=== PATIENT | female | born 1975 | race Caucasian/White ===

== ENCOUNTER → 2018-01-01 | Outpatient (CLI) | payer SELFPAY ==
[~2018-01-01] VITALS: Ht 167.6 cm; Wt 68.6 kg
[~2018-01-01] MED LIST: CAPRYLIC ACID PO; CEREFOLIN PO; D-2000 90 MG-201 TAB PO; FISH OIL500 MG; MARNATAL-F1 CAP PO; PRENATAL VITAMI1 TA5 PO; PROBIOTIC FORMU1 CAP PO; VITAMIN C500 MG PO; [UNRECOGNIZED DRUG - OTHER]; [UNRECOGNIZED DRUG - OTHER]; cortisol manager
[2018-01-01 15:59] VITALS: BP 138/82; PULSE 75; TEMP 98.1
[2018-01-01 17:00] VITALS: BP 138/82; PULSE 75; TEMP 98.1
[2018-01-01 17:16] LABS: BASO % 0.2 % (0.0-2.0); EOS # 0.1 (0.0-0.7); EOS % 0.6 % (0-4.0); GRAN # 7.1 (1.4-6.5); GRAN % 81.1 % (42.2-75.2); HEMATOCRIT 37.4 % (37.0-47.0); HEMOGLOBIN 12.7 g/dl (12.5-16.0); LYMPH # 1.1 (1.2-3.4); LYMPH % 12.7 % (20.0-51.0); MEAN CELL VOLUME 105 fl (80.0-100.0); MEAN CORPUSCULAR HEMOGLOBIN 36 pg (27.0-31.0); MEAN CORPUSCULAR HGB CONC 34 g/dl (33.0-37.0); MEAN PLATELET VOLUME 13.1 fl (7.4-10.4); MONO # 0.4 (0.1-0.6); MONO % 4.9 % (1.7-9.3); PLATELET COUNT 137 K/mm3 (130-400); RED BLOOD COUNT 3.57 M/mm3 (4.10-5.30); REDCELL DISTRIBUTION WIDTH-CV 13.4 % (11.5-14.5)
[2018-01-01 17:26] LABS: ALBUMIN 3.1 gm/dL (3.5-5.0); BILIRUBIN,TOTAL 0.2 mg/dL (0.0-1.0); CALCIUM 8.9 mg/dL (8.4-10.2); CREATININE, serum 0.69 mg/dL (0.52-1.25); POTASSIUM 3.9 mmol/L (3.4-5.0); TOTAL PROTEIN 6.4 gm/dL (6.4-8.2)
[2018-01-01 18:30] VITALS: BP 102/55; PULSE 69; TEMP 98.2
== END ==
LOC: LDRO 15:46
PROVIDERS: Student in an Organized Health Care Education/Training Program
DX: O99.89 Other specified diseases and conditions complicating pregnancy, childbirth and the puerperium (principal); M54.5 Low back pain; Z3A.28 28 weeks gestation of pregnancy
CPT/HCPCS: J7120

== ENCOUNTER → 2018-01-07 | Outpatient (CLI) | payer SELFPAY | LOC: SUN.DIA 12:21 | DX: O24.419 Gestational diabetes mellitus in pregnancy, unspecified control (principal); Z3A.00 Weeks of gestation of pregnancy not specified; Z71.3 Dietary counseling and surveillance | CPT/HCPCS: G0108 ==

== ENCOUNTER → 2018-01-21 | Outpatient (CLI) | payer SELFPAY | LOC: SUN.DIA 11:03 | DX: O24.419 Gestational diabetes mellitus in pregnancy, unspecified control (principal); Z3A.32 32 weeks gestation of pregnancy; Z71.3 Dietary counseling and surveillance | CPT/HCPCS: G0108 ==

== ENCOUNTER 2018-02-15 13:15 | Inpatient (IN) | payer SELFPAY ==
[2018-02-15] VITALS (22 sets, daily range): BP systolic 110–154; BP diastolic 58–88; PULSE 68–98; TEMP 97.7–98.7
[~2018-02-15] VITALS: Ht 167.6 cm; Wt 70.5 kg
[2018-02-15 14:23] LABS: BASO % 0.3 % (0.0-2.0); EOS # 0.1 (0.0-0.7); EOS % 0.9 % (0-4.0); GRAN # 5.5 (1.4-6.5); GRAN % 72.7 % (42.2-75.2); HEMATOCRIT 40.8 % (37.0-47.0); HEMOGLOBIN 14.1 g/dl (12.5-16.0); LYMPH # 1.4 (1.2-3.4); LYMPH % 19.2 % (20.0-51.0); MEAN CELL VOLUME 104 fl (80.0-100.0); MEAN CORPUSCULAR HEMOGLOBIN 36 pg (27.0-31.0); MEAN CORPUSCULAR HGB CONC 35 g/dl (33.0-37.0); MEAN PLATELET VOLUME 13.7 fl (7.4-10.4); MONO # 0.5 (0.1-0.6); MONO % 6.1 % (1.7-9.3); PLATELET COUNT 120 K/mm3 (130-400); RED BLOOD COUNT 3.93 M/mm3 (4.10-5.30); REDCELL DISTRIBUTION WIDTH-CV 13.6 % (11.5-14.5)
[2018-02-15] MEDS ORDERED: [UNRECOGNIZED DRUG - OTHER] PO (16:11)
[2018-02-16 03:15] VITALS: BP 131/76; PULSE 62; TEMP 97.6
[2018-02-16 07:30] VITALS: BP 126/81; PULSE 87; TEMP 97.6
[2018-02-16] MEDS ORDERED: IBU600 MG PO (10:15)
[2018-02-16 12:30] VITALS: BP 110/67; PULSE 67; TEMP 97.2
[2018-02-16 17:30] VITALS: BP 124/84; PULSE 66; TEMP 98
[2018-02-16 19:20] VITALS: BP 138/85; PULSE 86; TEMP 98.2
[2018-02-16 23:15] VITALS: BP 116/79; PULSE 72
[2018-02-17 07:00] VITALS: BP 121/68; PULSE 78; TEMP 97.6
== END 2018-02-17 13:00 | disposition home or self-care (01) | DRG 775 ==
LOC: LDRO 13:15 → LDR 14:09 → OB 21:00
PROVIDERS: Obstetrics & Gynecology
PROC: 10E0XZZ Delivery of Products of Conception, External Approach (ICD-10-PCS; principal; 2018-02-15)
PROC: 0HQ9XZZ Repair Perineum Skin, External Approach (ICD-10-PCS; 2018-02-15)
DX: O60.14X0 Preterm labor third trimester with preterm delivery third trimester, not applicable or unspecified (principal); O99.12 Other diseases of the blood and blood-forming organs and certain disorders involving the immune mechanism complicating childbirth; O24.420 Gestational diabetes mellitus in childbirth, diet controlled; Z3A.35 35 weeks gestation of pregnancy; Z37.0 Single live birth; Z22.330 Carrier of Group B streptococcus; O70.0 First degree perineal laceration during delivery
CPT/HCPCS: J2540; J2590; J7120

== ENCOUNTER → 2020-06-12 | Outpatient (CLI) | payer SELFPAY ==
[~2020-06-12] MED LIST changes: +IBU600 MG PO; +[UNRECOGNIZED DRUG - OTHER] PO
== END ==
LOC: ZCOL.LAB 17:40
DX: U07.1 COVID-19 (principal)